=== PATIENT | male | born 1995 | race Caucasian/White ===

== ENCOUNTER 2021-02-06 17:11 | Emergency (ER) | payer OTHER ==
[2021-02-06] MEDS ORDERED: CLINDAMYCIN HC300 MG PO (21:06)
[2021-02-06 21:12] LABS: HEMOGLOBIN 15.5 gm/dl (14.0-17.5); RED BLOOD COUNT 4.78 M/UL (4.20-5.50)
[2021-02-06 21:33] LABS: BUN/CREATININE RATIO 10 (0-10)
== END 2021-02-06 21:20 | disposition home or self-care (01) ==
LOC: ER1 17:11
PROVIDERS: Nurse Practitioner
DX: S80.812A Abrasion, left lower leg, initial encounter (principal); M79.662 Pain in left lower leg; F17.210 Nicotine dependence, cigarettes, uncomplicated; X58.XXXA Exposure to other specified factors, initial encounter
CPT/HCPCS: 80048; 85025; 96372; 99283; J0690